=== PATIENT | male | born 1985 | race Caucasian/White ===

== ENCOUNTER 2022-08-13 10:32 | Outpatient (CLI) | payer OTHER ==
[2022-08-13 11:15] VITALS: BP 128/70
--- NOTE | 2022-08-13 11:15 | SLEEP CARE CONSULTATION ---
Information from patient questionnaire entered by Radha Sky. I have reviewed and concur with the information entered by Radha Sky. This document represents the service I personally performed and the decisions made by me, Lidya Morillo ARNP. History of Present Illness Service Date and Time: 08/13/2022 1032 Reason for Visit: New patient Chief Complaint: reports: Insomnia, Unrefreshed sleep, Excessive daytime sleepiness, Fatigue Date of Onset: 10+ yrs insomnia; 3+ yrs daytime sleepiness Usual bedtime: 9:30-10 PM Time it takes to fall asleep: 10-15 mins, if stressed 45 -60 mins Snores at night: Yes Observed to quit breathing while asleep: Yes Sleeps alone due to snoring: No (no but complians of snoring) Number of times waking at night: 1-2 Reasons for waking at night: reports: Gasping for air (when falling asleep), Other (unknown reason). denies: Choking Toss, Turn, or Twitch while sleeping: Yes Recalls having dreams: No Usually gets out of bed at: 0445; weekends [id number] Feels refreshed in the morning: No Morning headache: No Sleepy or fatigued during the day: Yes Ever fallen asleep while driving: No Takes day naps: No Dreams during day naps: No Prior sleep studies: No Additional HPI information: I had the pleasure of seeing ANISHA VIEIRA today regarding the possibility of him having a sleep disorder. His current complaints are insomnia, excessive daytime sleepiness, fatigue and unrefreshed. He was visiting with family who have medical backgrounds who advised him to get a sleep study. He was told he was snoring, making choking sounds and having pauses in the noise. His tells him that he sounds like a "freight train". 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 Patient is and lives in [place]. Have you smoked in the past 12 months: Yes (vaping currently; quit cigarettes 3- 4 yrs ago ) Cigarettes per day (20/pack): 20 Years of smokin Smoking Pack Years: 10.0 Alcohol use: Yes Alcohol amount and frequency: 1-2 drinks a month Caffeine use: Yes Caffeine amount and frequency: 2 drinks per day (energy drink in morning and 1 or 2 later in day) Family History Family history of sleep disordered breathing: Yes Family Hx Sleep Apnea: Mother: Snoring, Father: Snoring, Sibling: Snoring Allergies and Home Medications Drug allergies reviewed: Yes (NKDA) Home medication list reviewed: Yes Allergy and home medication list: Medications: Excedrin, prn (normally daily) Valentina Multivitamins Vit D Vit C Review of Systems Weight gain over past 5 years: 35 Cardiovascular: denies: high blood pressure Respiratory: reports: sputum production, chronic cough Gastrointestinal: denies: heartburn Neurological: reports: headaches (occasional migraines) Psychiatric: reports: anxiety Ear/Nose/Throat: denies: tonsillectomy Immunologic: reports: sneezing, allergies to food or environment Physical Exam Vital signs obtained and entered by: RADHA Lovelace MA Blood Pressure: 128/70 (LEFT ARM) Cuff size: regular Heart Rate: 73 O2 Saturation: 97 Height: 5 ft 7.75 in Weight: 200 lb 9.6 oz Body Mass Index: 30.7 BMI Classification: Obese Neck circumference: 17 (inches) Nostrils: patent to airflow Mouth and throat: narrow oropharynx Soft palate: long Hard palate: normal Uvula: normal Uvula visualization: 50% Mallampati Class II Tongue: enlarged in size with teeth chew on lateral edges Tonsils: small Neck: normal w/o lymphadenopathy or thyromegaly Heart: regular rate and rhythm Lungs: clear bilaterally Impression and Plan 1. Suspected Obstructive Sleep Apnea-Hypopnea Syndrome, as suggested by a history of loud and irregular snoring, observed cessation of breath while asleep, gasping or choking in sleep, morning headache, unrefreshed sleep, cognitive impairment, and excessive daytime sleepiness. Narrow oropharynx and obesity are common predisposing factors for obstructive sleep apnea-hypopnea syndrome. I recommend proceeding to polysomnography to confirm the diagnosis and to assess severity. If the patient has significant sleep disordered breathing, a manual CPAP titration study will also be performed to find the optimal treatment pressure. I informed the patient of what the sleep studies involve and after some discussion, obtained agreement to proceed. The pathophysiology of obstructive sleep apnea-hypopnea syndrome was discussed with the patient and health risks of cardiovascular and cerebrovascular disease if not treated. Risks of drowsy driving discussed in detail and patient advised to avoid long distance driving and to slab puller at the first sign of drowsiness. Patient agreed to plan. * Schedule polysomnography * Avoid long distance driving or driving when feeling sleepy. * Avoid alcohol, sedative and muscle relaxant around bedtime. * Attempt to lose weight. * Review instructions provided by trained office staff on how to prepare for the sleep study. * Return for follow-up after sleep study completed. Counseling Topics: Weight loss health impact Visit Type: In Office Time Spent with Patient (minutes): 33 Provider Statement: I spent 100% of the Face to Face Visit with the patient with greater than 50% spent counseling the patient and coordination of care.
== END 2022-08-13 10:33 | disposition home or self-care (01) ==
LOC: SC 10:32
PROVIDERS: ATTEND Nurse Practitioner Family
DX: R06.83 Snoring (principal); G47.8 Other sleep disorders; R06.81 Apnea, not elsewhere classified; G47.00 Insomnia, unspecified; G47.10 Hypersomnia, unspecified; R53.83 Other fatigue; E66.9 Obesity, unspecified; Z68.30 Body mass index [BMI] 30.0-30.9, adult; Z87.891 Personal history of nicotine dependence
CPT/HCPCS: 99203; 99212

== ENCOUNTER 2022-12-23 19:21 | Outpatient (CLI) | payer OTHER | END 2022-12-23 19:22 | disposition home or self-care (01) | LOC: SC 19:21 | PROVIDERS: ATTEND Nurse Practitioner Family | DX: G47.33 Obstructive sleep apnea (adult) (pediatric) (principal); E66.9 Obesity, unspecified; Z68.30 Body mass index [BMI] 30.0-30.9, adult | CPT/HCPCS: 95810 ==

== ENCOUNTER 2022-12-25 09:27 | Outpatient (CLI) | payer OTHER ==
[2022-12-25 09:55] VITALS: BP 126/76
--- NOTE | 2022-12-25 09:55 | SLEEP CARE CONSULTATION ---
Information from patient questionnaire entered by Radha Sky. I have reviewed and concur with the information entered by Radha Sky. This document represents the service I personally performed and the decisions made by , Lidya Morillo ARNP. History of Present Illness Service Date and Time: 12/25/2022926 Initial [place] Sleepiness Scale score: 13 (07/2022) Current [place] Sleepiness Scale score: 15 (12/25/22) Additional HPI information: ANISHA VIEIRA returns for follow up and results of the recently performed polysomnography. I explained the pathophysiology behind obstructive sleep apnea. We then spent quite a bit of time discussing different treatment options. For mild obstructive sleep apnea, surgery and oral appliance are alternatives to nasal CPAP therapy but in moderate or severe cases, nasal CPAP is the most effective and reliable treatment. I reviewed the impact of weight changes on sleep apnea and strongly recommended losing weight. After some discussion, the patient opted to go with the nasal CPAP therapy. Nasal autoCPAP set at 4-15 cmH20 will be ordered with rationale explained. A manual titration study will be ordered if unable to find optimal pressure with office adjustments. I explained how CPAP machine works and what to expect when using the machine. Using CPAP every night in order to get used to it was emphasized. Patient advised to put CPAP mask on before getting into bed so as not to fall asleep without CPAP. To assist acclimation to CPAP use, it could also be used for a short time during day while reading or watching TV. The patient was instructed to call the CPAP supplier to discuss any mechanical problem that may occur. If the mask given is uncomfortable or is difficult to keep on through the night even with adjustment, contact the CPAP supplier as many will replace with another mask style if notified before 30 days. If snoring or perceives is not getting enough air or too much air from the machine, notify this office. Patient does not drink alcohol. Patient was cautioned about risks of drowsy driving until sleepiness symptoms resolve. Sleep Study - Results Type of Sleep Study: Polysomnography (COMPLETED 12/23/22) Prior sleep studies: No Polysomnography/Home Sleep Study results: IMPRESSION: The quality of the study is good. The patient had normal sleep efficiency. The sleep architecture was abnormal for sleep fragmentation and reduced amount of time spent in slow wave sleep (N3). Respiratory monitoring showed severe obstructive sleep apnea-hypopnea (AHI = 47.5) associated with frequent arousals, oxyhemoglobin desaturation and moderate hypoxia (christoph oxygen saturation of 75%) . Baseline oxygen saturation was normal. The patient only slept supine during this study (supine AHI = 47.7; non-supine = 0.00). Snore was light to loud in intensity. There was no significant periodic leg movement of sleep. Cardiac rhythm was normal sinus rhythm without significant arrhythmia. No abnormal behavior (parasomnia) observed during the night. Allergies and Home Medications Known drug allergies: No Drug allergies reviewed: Yes Home medication list reviewed: Yes (no changes) Allergy and home medication list: Allergies No Known Drug Allergies Allergy (Verified 12/24/22 15:39) Review of Systems Review of systems same as previous: Yes (no changes) Physical Exam Vital signs obtained and entered by: RADHA Lovelace MA Blood Pressure: 126/76 (LEFT ARM) Cuff size: regular Heart Rate: 75 O2 Saturation: 98 Height: 5 ft 7.75 in Weight: 206 lb 6.4 oz Body Mass Index: 31.6 BMI Classification: Obese Impression and Plan 1. Obstructive Sleep Apnea-Hypopnea Syndrome, severe, with lowest oxygen saturation of 75%. Obviously this is the cause of the patients symptoms of unrefreshed sleep, and excessive daytime sleepiness. Positive pressure therapy could benefit migraines. As mentioned above, the patient will be started on nasal autoCPAP therapy with pressure set at 4-15 cmH2O. Compliance guidelines a lso reviewed. A copy of compliance guidelines will be given for reference at check out. Because the apnea is more severe supine, I instructed to avoid sleeping supine using pillow positioning until able to start CPAP use. 2. Hypoxemia, moderate, with a christoph oxygen saturation of 75% and 22.9 minutes spent under 90%. His baseline oxygen saturation was normal with an average oxygen saturation of 93%. * Nasal auto CPAP therapy, pressure at 4-15 cm H2O. * Attempt to lose weight. * Avoid alcohol consumption near bedtime. * Avoid supine sleep until using CPAP. * The patient is again cautioned about driving until sleepiness completely resolves. * Return one month after CPAP obtained. I will assess response to therapy and compliance at that time. Counseling Topics: Spare mask, Weight loss health impact Visit Type: In Office Time Spent with Patient (minutes): 21 Provider Statement: I spent 100% of the Face to Face Visit with the patient with greater than 50% spent counseling the patient and coordination of care.
== END 2022-12-25 09:28 | disposition home or self-care (01) ==
LOC: SC 09:27
PROVIDERS: ATTEND Nurse Practitioner Family
DX: G47.33 Obstructive sleep apnea (adult) (pediatric) (principal); R09.02 Hypoxemia; E66.9 Obesity, unspecified; Z68.31 Body mass index [BMI] 31.0-31.9, adult
CPT/HCPCS: 99212; 99213

== ENCOUNTER 2023-03-16 12:57 | Outpatient (CLI) | payer OTHER ==
--- NOTE | 2023-03-16 13:35 | SLEEP CARE CONSULTATION ---
Information from patient questionnaire entered by Radha Sky. I have reviewed and concur with the information entered by Radha Sky. This document represents the service I personally performed and the decisions made by , Lidya Morillo ARNP. History of Present Illness Service Date and Time: 03/16/2023 1257 Previous diagnosis: Severe, Obstructive Sleep Apnea-Hypopnea Syndrome AHI: 47.5 (in 2022) Reason for follow up: first compliance Equipment type: CPAP (RESMED Airsense 11, s/u 12/2022) Equipment obtained from: Other ([facility], [employer] supplies) Mask style: Nasal Mask brand: Respironics ([employer]wear) Backup mask available: No (will keep old mask when eplaced) Last cushion change: 1-1.5 week Prior sleep studies: No Type of Sleep Study: Polysomnography (COMPLETED 12/23/22) HPI additional information: ANISHA VIEIRA was diagnosed to have severe, AHI 47.5, obstructive sleep apnea- hypopnea syndrome and returned today for CPAP therapy first compliance follow- up. Sleep Study - Results Type of Sleep Study: Polysomnography (COMPLETED 12/23/22) Prior sleep studies: No CPAP Compliance Data - Data Reviewed with Patient Average duration of nightly device use: 6 HRS 3 MINS Compliance rate %: 83 (02/13/23-03/14/23; days used) Current pressure setting (cmH2O): 4-15 (median 7.9, avg 10.7, max 11.8) Average residual AHI: 6.2 Central apnea: 3.4 Obstructive apnea: 1.4 Hypopnea: 1.2 Average large leak: 7.9 L/min Subjective Patient concerns: reports: aerophagia (a few times), condensation in mask/hose, nasal congestion, epistaxis (from allergies, light spots when blowing nose). denies: mask discomfort, air blowing in eyes, mask leak noise, dry mouth, nose, throat Observed to snore while using device: No Current pressure setting perceived as: too high (sometimes) On therapy, patient: reports: sleeping better, awakening more refreshed, being more awake and alert during the day, more rested overall. denies: drowsiness while driving Initial [place] Sleepiness Scale score: 13 (07/2022) Current [place] Sleepiness Scale score: 6 (03/16/23) Allergies and Home Medications Known drug allergies: No Drug allergies reviewed: Yes Home medication list reviewed: Yes (no changes) Allergy and home medication list: Allergies No Known Drug Allergies Allergy (Verified 03/15/23 16:19) Review of Systems Review of systems same as previous: Yes (no changes) Physical Exam Vital signs obtained and entered by: RADHA Lovelace MA Blood Pressure: 132/84 (LEFT ARM) Cuff size: regular Heart Rate: 84 O2 Saturation: 98 Height: 5 ft 7.75 in Weight: 208 lb 6.4 oz Body Mass Index: 31.9 BMI Classification: Obese Impression and Plan 1. Obstructive Sleep Apnea-Hypopnea Syndrome, severe, with good treatment compliance and fair apnea control with elevated residual AHI. On CPAP therapy, the patient has better sleep quality and is more rested overall. He states he has been having some condensation in the mask. He has tried to adjust heated hose and it is now at 80 degrees. He has reduced the humidity to 1. He has also had some increase in feeling bloated and some weight gain. He is seeing his primary doctor about the weight gain. I advised him to cover his heated hose with a hose cover because he sleeps in a cold room at night. I advised him that reducing pressure can reduce the bloating feeling and that the pressure feels too high, hard to breathe. The patients pressure will be changed to autoCPAP 8- 10 cmH20 for elevation of residual AHI. Patient advised to contact me if pressure change is uncomfortable so that it can be adjusted. Goals for apnea control discussed. Patient's apnea severity and rationale for treatment to reduce apnea, improve sleep quality and reduce cardiovascular and cerebrovascular events was reviewed. I also reviewed the benefit of consistent device use of CPAP for migraines. 2. Obesity, unspecified. Currently patients BMI is 31.9. Obesity increases the risk of apnea, CPAP pressure requirements and overall health risks especially cardiovascular and diabetes. Thus patient is advised to lose weight. * Change auto CPAP pressure to 8-10 cmH2O * Notify me if snoring with mask or feeling that the pressure is too much or too little * Attempt to lose weight * Call this office if any problems using CPAP * Return for follow up in 1-2 months, or sooner if concerns arise Counseling Topics: Spare mask, Weight loss health impact Visit Type: In Office Time Spent with Patient (minutes): 25 Provider Statement: I spent 100% of the Face to Face Visit with the patient with greater than 50% spent counseling the patient and coordination of care.
[2023-03-16 13:41] VITALS: BP 132/84
== END 2023-03-16 12:58 | disposition home or self-care (01) ==
LOC: SC 12:57
PROVIDERS: ATTEND Nurse Practitioner Family
DX: G47.33 Obstructive sleep apnea (adult) (pediatric) (principal); E66.9 Obesity, unspecified; Z68.31 Body mass index [BMI] 31.0-31.9, adult
CPT/HCPCS: 99212

== ENCOUNTER 2023-04-20 12:41 | Outpatient (CLI) | payer OTHER ==
--- NOTE | 2023-04-20 13:19 | Sleep Patient Instructions ---
Sleep Center Visit Summary - Patient Visit Information Reason for Visit: 1 month follow up for PAP therapy - Patient Instructions Additional Instructions: You were here for follow up of CPAP therapy. You will be continued on CPAP therapy with pressure at 7-9 cmH2O. Please let me know if the pressure is uncomfortable for further adjustments. You should follow up with sleep care in 6 months. You may contact us sooner for any questions or concerns. - Clinic Information Contact: [facility] [address] [place] [address] [email or web address] T: [phone]
--- NOTE | 2023-04-20 13:24 | SLEEP CARE CONSULTATION ---
Information from patient questionnaire entered by Radha Sky. I have reviewed and concur with the information entered by Radha Sky. This document represents the service I personally performed and the decisions made by , Lidya Morillo ARNP. History of Present Illness Service Date and Time: 04/20/2023 1241 Previous diagnosis: Severe, Obstructive Sleep Apnea-Hypopnea Syndrome AHI: 47.5 (in 2022) Reason for follow up: one month (F/U) Equipment type: CPAP (RESMED Airsense 11, s/u 12/2022) Equipment obtained from: Other ([facility] [employer], [employer] supplies) Mask style: Nasal Mask brand: Respironics ([employer]) Backup mask available: Yes (old mask) Last cushion change: 2-3 weeks ago Prior sleep studies: No Type of Sleep Study: Polysomnography (COMPLETED 12/23/22) HPI additional information: ANISHA VIEIRA was diagnosed to have severe, AHI 47.5, obstructive sleep apnea- hypopnea syndrome and returned today for CPAP therapy one month follow-up. Sleep Study - Results Type of Sleep Study: Polysomnography (COMPLETED 12/23/22) Prior sleep studies: No CPAP Compliance Data - Data Reviewed with Patient Average duration of nightly device use: 5 hours 59 minutes Compliance rate %: 80 ( days used) Current pressure setting (cmH2O): 8-10 (median 9.5, avg 9.9, max 10) Average residual AHI: 6.2 Central apnea: 3.8 Obstructive apnea: 1.3 Average large leak: 0 L/min Subjective Patient concerns: reports: condensation in mask/hose (not all the time), nasal congestion, dry mouth, nose, throat (not all the time). denies: aerophagia, mask discomfort, air blowing in eyes, mask leak noise, epistaxis Observed to snore while using device: No Current pressure setting perceived as: comfortable On therapy, patient: reports: sleeping better, awakening more refreshed, being more awake and alert during the day, more rested overall. denies: drowsiness while driving Initial [place] Sleepiness Scale score: 13 (07/2022) Current [place] Sleepiness Scale score: 5 (04/20/23) Allergies and Home Medications Known drug allergies: No Drug allergies reviewed: Yes Home medication list reviewed: Yes (no changes) Allergy and home medication list: Allergies No Known Drug Allergies Allergy (Verified 04/19/23 15:15) Review of Systems Review of systems same as previous: Yes (no changes) Physical Exam Vital signs obtained and entered by: RADHA Lovelace MA Blood Pressure: 136/82 (LEFT ARM) Cuff size: regular Heart Rate: 81 O2 Saturation: 97 Height: 5 ft 7.75 in Weight: 210 lb 9.6 oz Body Mass Index: 32.2 BMI Classification: Obese Impression and Plan 1. Obstructive Sleep Apnea-Hypopnea Syndrome, severe, with good treatment compliance and fair apnea control with mildly elevated residual AHI. On CPAP therapy, the patient has better sleep quality and is more rested overall. His central index is at 3.8 and obstructive index at 1.3. The patients pressure will be changed to autoCPAP 7-9 cmH20 for elevation of residual AHI. Patient advised to contact me if pressure change is uncomfortable so that it can be adjusted. He has significant improvement of his sleep apnea and feels satisfied with current therapy. He states his is sleeping much better now that he is not snoring. He is going on deployment for 6-8 months. I will have him follow up when he comes back in the area. Goals for apnea control discussed. Patient's apnea severity and rationale for treatment to reduce apnea, improve sleep quality and reduce cardiovascular and cerebrovascular events was reviewed. I also reviewed the benefit of consistent device use of CPAP for migraines. 2. Obesity, unspecified. Currently patients BMI is 32.2. Obesity increases the risk of apnea, CPAP pressure requirements and overall health risks especially cardiovascular and diabetes. Thus patient is advised to lose weight. * Change auto CPAP pressure to 7-9 cmH2O * Notify me if snoring with mask or feeling that the pressure is too much or too little * Attempt to lose weight * Call this office if any problems using CPAP * Return for follow up in 6 months, or sooner if concerns arise Counseling Topics: Spare mask, Weight loss health impact Visit Type: In Office Time Spent with Patient (minutes): 25 Provider Statement: I spent 100% of the Face to Face Visit with the patient with greater than 50% spent counseling the patient and coordination of care.
[2023-04-20 13:32] VITALS: BP 136/82
== END 2023-04-20 12:42 | disposition home or self-care (01) ==
LOC: SC 12:41
PROVIDERS: ATTEND Nurse Practitioner Family
DX: G47.33 Obstructive sleep apnea (adult) (pediatric) (principal); E66.9 Obesity, unspecified; Z68.32 Body mass index [BMI] 32.0-32.9, adult
CPT/HCPCS: 99212; 99213